=== PATIENT | male | born 1935 | race Caucasian/White ===

== ENCOUNTER 2020-05-03 20:08 | Emergency (ER) | payer MEDICARE, BC ==
[2020-05-03] MEDS ORDERED: Ventolin HFA Inhaler 60 PUFF INHALER ONE (20:20)
[2020-05-03] MEDS ORDERED: Albuterol Sulfate 2.5 mg/3 ml Neb ONE (20:22)
[2020-05-03 20:43] LABS: #Basophils 0.1 thou/uL (0.0-0.2); #Lymphocytes 0.6 thou/uL (1.20-3.40); #Monocytes 0.6 thou/uL (0.11-0.59); #Neutrophils 8.7 thou/uL (1.40-6.50); %Basophils 1.1 % (0.0-1.0); %Eosinophils 0.1 % (0.0-10.0); %Lymphocytes 6.2 % (21.0-51.0); %Monocytes 6.3 % (0.0-10.0); %Neutrophils 86.3 % (42.0-75.0); Hemoglobin 13.2 g/dL (14.0-18.0); Mean Corpuscular HGB CONC 31.4 g/dL (32.0-36.0); Mean Corpuscular Hemoglobin 27.6 pg (27.0-31.0); Mean Corpuscular Volume 87.8 fL (78.0-98.0); Mean Platelet Volume 6.6 fL (7.4-10.4); Platelet Count 183 thou/uL (130-400); RBC Distribution Width 13.4 % (11.5-14.5)
--- NOTE | 2020-05-03 20:53 | RAD ---
Exam: Chest one view HISTORY:Dyspnea. COPD. Comparison: 03/21/2020 FINDINGS: Cardiac silhouette:Cardiomegaly. Stable sternotomy wires. Aorta: Atherosclerosis Pulmonary vessels: Normal Costophrenic angles: Increasing bilateral pleural effusion. LUNGS: Worsening bibasilar opacities along with pleural-based opacities which are similar to the prev ious examination. Pneumothorax: None Osseous abnormalities: None IMPRESSION: 1. Findings presumed to be due to worsening congestive heart failure. Superimposed aspiration and/or pneumonia cannot be excluded. 2. Stable pleural-based masses on the lateral right hemithorax.
[2020-05-03 21:02] LABS: ALT (SGPT) 19 U/L (8-55); AST (SGOT) 50 U/L (5-34); Albumin 3.3 g/dL (3.4-4.8); Alkaline Phosphatase 108 U/L (40-110); Anion Gap 15 mmol/L (10-20); BUN (Urea Nitrogen) 20 mg/dL (8.4-25.7); Bilirubin, Total 0.4 mg/dL (0.2-1.2); Calc. Creatinine Clearance 0 mL/min (70-130); Carbon Dioxide 30 mmol/L (23-31); Chloride 88 mmol/L (98-107); Globulin 2.5 g/dL (2.4-3.5); Glucose 156 mg/dL (83-110); Potassium 4.7 mmol/L (3.5-5.1); Protein, Total 5.8 g/dL (5.8-8.1); Sodium 128 mmol/L (136-145)
[2020-05-03 21:14] LABS: Base Excess-Venous 2.2 mmol/L (-2.0 to 3.0); Bicarbonate (HCO3v) 31.6 mmol/L (22.0-28.0); CO2 Tension (PvCO2) 71.1 mmHg (40.0-50.0); Calcium, Ionized 1.08 mmol/L (1.15-1.33); Chloride 88 mmol/L (98-107); Hemoglobin - Calc 14.3 g/dL (14.0-18.0); Potassium 4.6 mmol/L (3.5-5.1); Sodium 128 mmol/L (138-145); T. Carbon Dioxide 33.8 mmol/L (22.0-28.0); vO2 Saturation-calc 89.9 % (60.0-85.0)
[2020-05-03 22:35] LABS: SARS-CoV-2 NAA Rapid Test Not Detected (NotDetected)
== END 2020-05-03 22:15 | disposition short-term general hospital (02) ==
LOC: NAV ERS 20:08
DX: J44.1 Chronic obstructive pulmonary disease with (acute) exacerbation (principal); I10 Essential (primary) hypertension; M10.9 Gout, unspecified
CPT/HCPCS: 0240U; 71045; 80053; 82330; 82803; 83605; 83880; 84484; 85025; 85379; 93005; J7611